=== PATIENT | male | born 1950 | race Caucasian/White ===

== ENCOUNTER 2017-12-23 05:23 | Inpatient (IN) | payer BC, OTHER ==
[2017-12-14 08:52] LABS: URINE BILIRUBIN NEGATIVE (Negative); URINE BLOOD NEGATIVE (Negative); URINE CLARITY CLEAR; URINE COLOR YELLOW; URINE GLUCOSE-RANDOM* NEGATIVE (Negative); URINE KETONES NEGATIVE (Negative); URINE LEUKOCYTES-REFLEX NEGATIVE (Negative); URINE NITRITE-REFLEX NEGATIVE (Negative); URINE PROTEIN (DIPSTICK) NEGATIVE (Negative); URINE SPECIFIC GRAVITY >= 1.030 (1.005-1.035); URINE UROBILINOGEN 0.2 E.U./dl (0.2-1.0)
[2017-12-14 08:55] LABS: HEMATOCRIT 47.4 % (42.0-52.0); HEMOGLOBIN 16.1 gm/dL (14.0-18.0); MCH 30.5 pg (26.0-34.0); MCHC 33.9 g/dL (28.0-37.0); MCV 89.8 fL (80.0-100.0); RBC 5.28 mil/uL (4.50-6.00); RDW 13.2 % (10.5-14.5); WBC 9.6 thou/uL (4.0-11.0)
[2017-12-14 09:08] LABS: INR 1.1; PROTIME 10.8 Seconds (9.3-11.4)
[2017-12-14 09:11] LABS: ALBUMIN 4.5 g/dL (3.4-5.0); CALCIUM 8.8 mg/dL (8.5-10.1); CREATININE 0.9 mg/dL (0.7-1.3); POTASSIUM 4.6 mmol/L (3.5-5.1)
[~2017-12-23] VITALS: Ht 172.7 cm; Wt 89.4 kg
[2017-12-23] VITALS (10 sets, daily range): BP systolic 111–136; BP diastolic 45–85
--- NOTE | ~2017-12-23 | EKG ---
[place] [address] [facility] [place] [address] ELECTROCARDIOGRAM REPORT Name: BERT REYNOSO Room #: PRE IN ..#: [id number] Admission: Attend Phys: Bert Curry MD Discharge: Date of : 52 Report #: [id number] THIS REPORT FOR: //name// [facility] Test Date: 2017-12-14 Test Time: 08:31:03 Pat Name: BERT REYNOSO Department: Room: Gender: Wrapper Selector: Ann ESTES : 1950 Requested By: Bert Curry Order Number: [id number] MD: Christian Carrasquillo Measurements Intervals [place] Rate: 60 P: 46 UT: 141 QRS: -45 QRSD: 139 T: -6 QT: 442 QTc: 442 Interpretive Statements Sinus rhythm RBBB and LAFB No previous ECG available for comparison Electronically Signed On 12-14-2017 9:23:02 CDT by Christian Carrasquillo [email or web address] <ELECTRONICALLY SIGNED> By: Christian Carrasquillo MD, [facility] 12/14/17 0923 0831 0831 Christian Carrasquillo MD, FAC /EPI
--- NOTE | ~2017-12-23 | O ---
[address] [address] OPERATIVE REPORT Name: OLENA REYNOSO Room #: 402-P [facility] IN M.R.#: [id number] Admission: 12/23/17 Attend Phys: Olena Curry MD Discharge: Date of : 52 Report #: [id number] THIS REPORT FOR: //name// CC: Zeenat Mathews Olena Curry DATE OF SERVICE: 12/23/2017 SERVICE: Orthopedics. FACILITY: [place]. SURGEON: Olena Curry MD FLIGHT CREW SCHEDULER: None. PREOPERATIVE DIAGNOSIS: Left knee arthritis. POSTOPERATIVE DIAGNOSIS: Left knee arthritis. PROCEDURE: Left total knee arthroplasty with robotic-assisted computer navigation. ANESTHESIA: General with regional. COMPLICATIONS: None. DRAINS: None. SPECIMENS: None. ESTIMATED BLOOD LOSS: 100 mL. FINDINGS: 1. [employer] cobalt chrome size 6 femoral component with size 4 tibial component and 13 mm constrained poly liner with a 32 mm patellar button. 2. Computer navigation utilized for implant positioning and ligament balancing assistance. Ligament balancing confirmed with intraoperative assessment. HISTORY AND INDICATIONS: The patient is a 67-year-old gentleman who has a longstanding history of severe left knee arthritis that had progressed to the point that he wished to have definitive treatment. He had failed conservative measures including activity modification, injections, oral medicines, therapy, etc. He had failed multiple types of injections and presently wished to move forward with total knee arthroplasty. Risks, benefits, alternatives, and indications of surgery were discussed with him in detail. Risks include but not [address] [place] [address] OPERATIVE REPORT Name: OLENA REYNOSO Room #: 402-P [facility] IN M.R.#: [id number] Admission: 12/23/17 Attend Phys: Olena Curry MD Discharge: Date of : 52 Report #: [id number] limited to pain, bleeding, infection, injury to nerves or blood vessels, persistent pain despite surgical intervention, stiffness, need for further surgery including revision, fracture as well as complications related to anesthesia such as stroke, heart attack, pulmonary complications, thromboembolic disease and . Despite these risks, he wished to proceed. PROCEDURE IN DETAIL: After the left lower extremity was correctly identified as the operative extremity, the patient underwent placement of a single shot regional nerve block by anesthesia team. He was then taken to the operating room and placed supine on the operating table and general endotracheal anesthesia was induced without complication. He was padded appropriately. Prophylactic antibiotics with 2 grams Ancef were administered at appropriate time. Tourniquet was applied to the left leg. Total tourniquet time was 109 minutes. Left leg was then prepped and draped in standard sterile fashion. Time-out procedure was performed. Standard anterior approach was made to the knee. Full thickness skin flaps were developed. Medial parapatellar arthrotomy was performed and the knee was exposed. There was severe medial arthritis as well as patellofemoral arthritis. The lateral compartment overall was fairly well maintained; however, he did have [id number] change in the trochlea and the patella extending beyond the midline. The cruciates were resected as were the menisci and a limited medial release was performed as he had full extension with limited varus deformity. After the knee was exposed and osteophytes were removed, the [employer] robotic-assisted computer navigation system was used to establish the [place] anatomy of this patient's femur and tibia, which allowed for placement of the cutting guides, both on the femur and the tibia. The distal femoral cut was burred with the robotic device and then the 4-in-1 cutting block was placed on the distal femur and the cuts were made in the appropriate position after templating had been utilized to select a size 6 femur in appropriate position. Anterior and posterior & chamfer cuts were performed as templated. The patient was noted to be between sizes, so I downsized to the 6 as this seemed to fit him better medially to laterally. After the femoral side was prepared, attention was turned towards the tibia. The posterior horns of the menisci were removed. The PCL was resected and then the tibia was sized to a size 4 and then tibial rotation was established based on the femoral component rotation. The knee was able to achieve full extension with the trial in place. At this point, then I flexed the knee and noted a very large osteophyte off the lateral side of the posterior aspect of the medial femoral condyle. After this was successfully removed, this did lead to some additional medial-sided laxity as there was significantly less medial soft tissue tensioning present after this was removed. [address] [address] OPERATIVE REPORT Name: OLENA REYNOSO Room #: 402-P [facility] IN M.R.#: [id number] Admission: 12/23/17 Attend Phys: Olena Curry MD Discharge: Date of : 52 Report #: [id number] At this point, I assessed an 11 mm poly but there was a significant gapping in mid flexion medially, so I upsized to a 13 mm constrained trial and this provided better gap symmetry while still allowing him full extension. He had good balancing in full extension and his mid flexion was adequately stable and he was well balanced in flexion as well. Therefore, the tibial trial was utilized to establish the tibial rotation and then the patellar side was prepared in a standard fashion to a 32 mm patellar inset button. At this point, the first 30 mL of a total 120 mL periarticular injection cocktail was placed in the posterior capsules and then the knee was thoroughly lavaged and irrigated and dried and then the final components were cemented into place. A trial was placed and the knee was placed in extension while the cement cured. The second and third 30 mL syringes were utilized to perform the medial and lateral soft tissue pericapsular injection and then the tourniquet was let down and hemostasis was achieved. The fourth syringe was used anteriorly. After this was completed and the cement had cured, the knee was again evaluated. A 13 mm constrained trial was utilized and the knee was very stable with still some additional medial gapping that was corrected with simple manual tension of the medial soft tissue structures. A 13 mm constrained poly was therefore selected, placed into position. The wound was thoroughly irrigated once more and then 1 gram of vancomycin powder was placed within the wound and the arthrotomy was closed in a standard fashion. Additional tension was placed on the medial soft tissues to close down the medial sleeve and restore his stability during the closure and this did complete his flexion balancing on physical exam. [id number] 0 Vicryl sutures were utilized for the arthrotomy closure and then the skin was closed with 2-0 Vicryl, followed by running subcuticular 3-0 Monocryl and Dermabond. Sterile dressing was applied followed by compression stocking. The patient was awakened from anesthesia and taken to recovery room in stable condition. There were no complications and all counts were recorded as correct. <ELECTRONICALLY SIGNED> By: Olena Curry MD 12/23/17 1330 1437 1636 Olena Curry MD /nt
[~2017-12-23 05:23] MED LIST: CLONAZEPAM 0.50.5 M1 PO; LOVASTATIN 20 M20 MG PO; NAPRELAN500 M2 PO; SINEMET 25-1001 EAC1 PO; TRAMADOL 50 MG50 MG PO
[2017-12-24] VITALS: BP 98/67
[2017-12-24 04:00] VITALS: BP 95/55
[2017-12-24 06:45] LABS: HEMATOCRIT 38.7 % (42.0-52.0); MCH 30.4 pg (26.0-34.0); MCHC 33.5 g/dL (28.0-37.0); MCV 90.8 fL (80.0-100.0); RBC 4.26 mil/uL (4.50-6.00); RDW 13.5 % (10.5-14.5); WBC 14.6 thou/uL (4.0-11.0)
[2017-12-24 06:51] LABS: CALCIUM 7.8 mg/dL (8.5-10.1); POTASSIUM 3.9 mmol/L (3.5-5.1)
[2017-12-24 07:10] VITALS: BP 106/621
[2017-12-24 13:14] VITALS: BP 106/621
== END 2017-12-24 14:40 | disposition home or self-care (01) | DRG 470 ==
LOC: TBA 05:23 → 4N 05:23 → PRE 05:42 → 4N 15:18 → ENTRNSPT 12-24 14:30 → EDTRNSPTSTS 12-24 14:31 → 4N 12-24 14:40
PROVIDERS: Orthopaedic Surgery Sports Medicine
DX: M17.12 Unilateral primary osteoarthritis, left knee (principal); I10 Essential (primary) hypertension; G25.81 Restless legs syndrome; E78.5 Hyperlipidemia, unspecified; Z87.891 Personal history of nicotine dependence; Z79.899 Other long term (current) drug therapy
CPT/HCPCS: 10790; 50010; 50101; 50415; 50954; 51130; 51225; 51320; 51412; 51771; 52001; 53000; 53078; 53364; 54118; 56527; 56528; 57095; 57127; 62110; 62900; 64037; 70005